=== PATIENT | female | born 1990 | race Two or more races ===

== ENCOUNTER 2021-01-10 08:21 | Inpatient (IN) ==
[2021-01-10] MEDS ORDERED: ONDANSETRON 4 MG/2 ML VIAL IV PRN ×2 (08:44→10:53)
[2021-01-10] MEDS ORDERED: LACTATED RINGERS 500 ML IV PRN (08:44)
[2021-01-10] MEDS ORDERED: BUTORPHANOL 2 MG/ML VIAL IV PRN (08:44)
[2021-01-10] MEDS ORDERED: ACETAMINOPHEN 325 MG TABLET PO PRN ×2 (08:44→10:53)
[2021-01-10] MEDS ORDERED: oxyCODONE/ACETAMINOPHEN 5-325 MG TABLET PO PRN (08:44)
[2021-01-10] MEDS ORDERED: MEPERIDINE 50 MG/1 ML VIAL IV PRN (08:44)
[2021-01-10] MEDS ORDERED: OXYTOCIN/LR 30 UNIT/1,000 ML BAG IV ONE (08:47)
[2021-01-10] MEDS ORDERED: LACTATED RINGERS 1,000 ML IV ONE (08:48)
[2021-01-10] MEDS ORDERED: CITRIC ACID/SODIUM CITRATE 30 ML UDCUP PO ONE (08:48)
[2021-01-10] MEDS ORDERED: FAMOTIDINE 20 MG/2 ML VIAL IV ONE (08:48)
[2021-01-10 08:59] LABS: Basophils % 0.2 % (0.0-0.8); Eosinophils % 0.1 % (0.00-10.9); Hematocrit 28.4 VOL% (35.7-47.0); Immature Granulocytes % 0.4 %; Immature Granulocytes Absolute 0.05 #; Lymphocytes # 1.8 10*3/uL (1.4-4.0); Mean Corpuscular HGB Conc 31.7 GM/DL (32-36); Mean Corpuscular Volume 81.4 FL (87-102); Mean Platelet Volume 12.4 FL (9.6-12.0); Monocytes % 4.4 % (1.7-12.7); Neutrophils % 78.9 % (38.7-73.9); Platelet Count 233 T/CUMM (130-400); Red Blood Count 3.49 MC/CUMM (3.8-5.5); Red Cell Distribution Width 14.2 % (9.3-17.3); White Blood Count 11.5 T/CUMM (4-12)
[2021-01-10] MEDS ORDERED: LACTATED RINGERS 1,000 ML IV SCH ×2 (09:00→11:00)
[2021-01-10] MEDS ORDERED: miSOPROStoL 200 MCG TABLET ONE (09:09)
[2021-01-10] MEDS ORDERED: TRANEXAMIC ACID 1,000 MG/10 ML VIAL ONE (09:09)
[2021-01-10] MEDS ORDERED: CARBOPROST TROMETHAMINE 250 MCG/ML AMP IM ONE (09:10)
[2021-01-10] MEDS ORDERED: METHYLERGONOVINE 0.2 MG/1 ML AMP ONE (09:10)
[2021-01-10] MEDS ORDERED: ceFAZolin 2,000 MG in PREMIX 1 EACH IV ONE (09:15)
[2021-01-10] MEDS ORDERED: OXYTOCIN 10 UNIT/ML VIAL IM ONE (09:15)
[2021-01-10 09:18] LABS: Albumin 2.8 G/DL (3.4-5.0); Bilirubin,Total 0.4 MG/DL (0.2-1.0); Calcium 8.7 MG/DL (8.5-10.1); Osmolality,Calculated 277.5 MOS/KG (273-304); Potassium 3.8 MMOL/L (3.5-5.1); Total Protein 7.3 G/DL (6.4-8.3)
[2021-01-10] MEDS ORDERED: ONDANSETRON 4 MG/2 ML VIAL ONE (09:20)
[2021-01-10] MEDS ORDERED: BUPIVACAINE MPF 0.25% 30 ML VIAL ONE (09:20)
[2021-01-10] MEDS ORDERED: fentaNYL 100 MCG/2 ML VIAL ONE (09:20)
[2021-01-10] MEDS ORDERED: BUPIVACAINE SPINAL 0.75% 2 ML AMP SPINAL ONE (09:20)
[2021-01-10] MEDS ORDERED: MORPHINE 10 MG/10 ML VIAL ONE (09:20)
[2021-01-10 10:12] LABS: Cord Arterial Blood HCO3 18.7 MMOL/L; Cord Venous Blood HCO3 23.8 MMOL/L; Cord Venous Blood PCO2 53.2 MMHG; Cord Venous Blood PO2 27.2 MMHG
[2021-01-10] MEDS ORDERED: ACETAMINOPHEN 1,000 MG/100 ML VIAL IV ONE (10:14)
[2021-01-10] MEDS ORDERED: MAGNESIUM HYDROXIDE SUSP 30 ML UDCUP PO PRN (10:53)
[2021-01-10] MEDS ORDERED: RHO(D) IMMUNE GLOBULIN 300 MCG SYRINGE IM ONE (10:53)
[2021-01-10] MEDS ORDERED: IBUPROFEN 800 MG TABLET PO PRN (10:53)
[2021-01-10] MEDS ORDERED: SIMETHICONE CHEW 80 MG TABLET PO PRN (10:53)
[2021-01-10] MEDS ORDERED: OXYTOCIN/LR 20 UNIT/1,000 ML BAG IV ONE ×2 (10:53→11:02)
[2021-01-10 10:56] LABS: Bilirubin,Urine Negative (Negative); Blood, Urine Large mg/dL (Negative); Glucose,Urine (UA) Negative (Negative); Ketones,Urine Negative (Negative); Mucus,Urine Occasional /LPF (Occasional); Nitrite,Urine Negative (Negative); Protein,Urine 30 MG/DL; RBC,Urine 378 /HPF (0-4); Squamous Epithelial Cell,Urine Occasional /HPF (0-10); Urine Appearance CLEAR (Clear); Urine Color Yellow (Yellow); Urine Specific Gravity 1.024 (1.001-1.035); Urine Urobilinogen < 2.0 EU/DL (0.2-1.0); WBC,Urine 1 /HPF (0-6)
[2021-01-10] MEDS ORDERED: ceFAZolin 1,000 MG in SYRINGE 1 EACH IV SCH (11:00)
[2021-01-10] MEDS ORDERED: PHENYLEPHRINE 1 MG/10 ML SYRINGE IV ONE (11:00)
[2021-01-10 18:04] LABS: Basophils % 0.2 % (0.0-0.8); Eosinophils % 0.1 % (0.00-10.9); Hemoglobin 7.6 GM/DL (12.0-16.0); Immature Granulocytes % 0.4 %; Immature Granulocytes Absolute 0.04 #; Mean Corpuscular Volume 80.7 FL (87-102); Monocytes % 6.3 % (1.7-12.7); Platelet Count 165 T/CUMM (130-400); Red Blood Count 2.85 MC/CUMM (3.8-5.5); White Blood Count 9.1 T/CUMM (4-12)
[2021-01-11] MEDS ORDERED: ceFAZolin 1,000 MG in SYRINGE 1 EACH IV SCH (02:30)
[2021-01-11 05:44] LABS: Basophils % 0.1 % (0.0-0.8); Eosinophils % 0.1 % (0.00-10.9); Hematocrit 25.2 VOL% (35.7-47.0); Hemoglobin 7.7 GM/DL (12.0-16.0); Immature Granulocytes % 0.6 %; Immature Granulocytes Absolute 0.06 #; Lymphocytes # 1.8 10*3/uL (1.4-4.0); Lymphocytes % 19.2 % (21.3-54.2); Mean Corpuscular HGB Conc 30.6 GM/DL (32-36); Mean Corpuscular Volume 82.6 FL (87-102); Mean Platelet Volume 12.5 FL (9.6-12.0); Monocytes % 6.2 % (1.7-12.7); Neutrophils % 73.8 % (38.7-73.9); Platelet Count 192 T/CUMM (130-400); Red Blood Count 3.05 MC/CUMM (3.8-5.5); Red Cell Distribution Width 14.2 % (9.3-17.3); White Blood Count 9.4 T/CUMM (4-12)
[2021-01-11] MEDS: DOCUSATE SODIUM 100 MG CAPSULE PO SCH ×3 (06:07→20:30)
[2021-01-11] MEDS: MULTIVITAMIN (PRENATAL) TABLET PO SCH (09:22)
[2021-01-11] MEDS: METOCLOPRAMIDE 10 MG TABLET PO SCH ×3 (09:22→23:27)
[2021-01-11] MEDS: FERROUS SULFATE 325 MG TABLET PO SCH ×3 (09:22→20:30)
[2021-01-11] MEDS ORDERED: SODIUM CHLORIDE 0.9% 1,000 ML IV PRN (09:40)
[2021-01-11 16:03] LABS: Hematocrit 25.5 VOL% (35.7-47.0); Hemoglobin 8.1 GM/DL (12.0-16.0)
[2021-01-12 07:11] VITALS: BP 99/61
[2021-01-12] MEDS: METOCLOPRAMIDE 10 MG TABLET PO SCH (08:20)
[2021-01-12] MEDS: FERROUS SULFATE 325 MG TABLET PO SCH (08:20)
[2021-01-12] MEDS: MULTIVITAMIN (PRENATAL) TABLET PO SCH (08:20)
[2021-01-12] MEDS: DOCUSATE SODIUM 100 MG CAPSULE PO SCH (08:20)
== END 2021-01-12 15:05 | disposition home or self-care (01) | DRG 788 ==
LOC: N.LDOUT 08:21 → N.LD 08:25 → N.OB 13:05
PROVIDERS: ADMIT Obstetrics & Gynecology; ATTEND Obstetrics & Gynecology
PROC: LDCSECT (ICD-10-PCS; 2021-01-10 09:00)